=== PATIENT | male | born 1960 | race Caucasian/White ===

== ENCOUNTER 2017-12-02 20:55 | Emergency (ER) | payer OTHER ==
[~2017-12-02] VITALS: Ht 188 cm; Wt 127.0 kg
[~2017-12-02 20:55] MED LIST: PERCOCET 5-3251 EACH PO
[2017-12-02] MEDS ORDERED: SEROQUEL50 M1 PO (21:13)
[2017-12-02] MEDS ORDERED: NORVASC2.5 M1 PO (21:13)
[2017-12-02] MEDS ORDERED: ALPRAZOLAM0.5 M4 PO (21:14)
[2017-12-02] MEDS ORDERED: MORPHINE SULFAT15 M4 PO (21:14)
[2017-12-02] MEDS ORDERED: CYCLOBENZAPRINE10 M1 PO (21:15)
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
[2017-12-02 22:15] LABS: ABSOLUTE BASOPHIL COUNT 0 /CUMM (0.0-0.2); ABSOLUTE EOSINOPHIL COUNT 0.2 /CUMM (0.0-0.7); ABSOLUTE GRANULOCYTE CT 4.4 /CUMM (1.4-6.5); ABSOLUTE LYMPH COUNT 1.7 /CUMM (1.2-3.4); ABSOLUTE MONOCYTE COUNT 0.5 /CUMM (0.10-0.60); BASOPHIL % 0.7 % (0.0-2.0); HEMATOCRIT 42.1 % (42-52); MEAN CORPUSCULAR HGB 29.1 PG (27.0-31.0); MEAN CORPUSCULAR HGB CONC 33.8 G/DL (33.0-37.0); MEAN CORPUSCULAR VOLUME 86.2 FL (80.0-94.0); MEAN PLATELET VOLUME 7.1 FL (7.4-10.4); PLATELET COUNT 377 /CUMM (130-400); RBC DISTRIBUTION WIDTH 12.9 % (11.5-14.5); RED BLOOD CELL CT 4.88 /CUMM (4.70-6.10); WHITE BLOOD CELL COUNT 6.9 /CUMM (4.8-10.8)
[2017-12-03 10:25] VITALS: BP 144/112
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
== END 2017-12-03 10:34 ==
LOC: ERH 20:55
PROVIDERS: Physician Assistant Medical
DX: F11.10 Opioid abuse, uncomplicated (principal)
CPT/HCPCS: 80307; G0463; G0480